=== PATIENT | male | born 1940 | race Caucasian/White ===

== ENCOUNTER 2017-11-16 15:39 | Observation (INO) | payer MEDICARE, OTHER ==
[2017-11-16] MEDS ORDERED: ASPIRIN 81 MG TABLET, CHEWABLE PO ONE (15:56)
[2017-11-16] MEDS ORDERED: NITROGLYCERIN 2% OINTMENT 1 GM PACKET TP ONE (15:56)
--- NOTE | 2017-11-16 15:56 | ER Document Report ---
ED General - General Mode of Arrival: Medic Information source: Patient <PAVEL FAROOQSUE - Last Filed: 11/16/17 22:24> <BRENT ARCE - Last Filed: 11/16/17 23:53> - General Stated Complaint: CHEST TIGHTNESS Time Seen by Provider: 11/16/17 15:46 Notes: Patient is a 77 year old male with a cardiac stent x1 and hypertension and a history of HI presents to the emergency department complaining of chest tightness onset yesterday and shortness of breath onset a few days ago. Patient states he in [place] visiting and has noticed an increase in shortness of breath. Patient states his shortness of breath is exacerbated with movement further stating he has noticed he gets tired easier when walking up an down stairs. He also states that he noticed his arms felt heavier than normal this morning. Patient also complains of nausea, general malaise and a headache. Patient took a baby aspirin prior to EMS arrival. Patient received 2 nitro from EMS prior to arrival to the emergency department. (DANIELLE FAROOQ) - Related Data Allergies/Adverse Reactions: meperidine [From Demerol] Allergy (Verified 11/16/17 16:08) morphine Allergy (Verified 11/16/17 16:07) Past Medical History - General Information source: Patient - Social History Smoking Status: Never Smoker Cigarette use (# per day): No Chew tobacco use (# tins/day): No Frequency of alcohol use: Heavy Drug Abuse: None Family History: Reviewed & Not Pertinent - Past Medical History Cardiac Medical History: Reports: Hx Heart Attack - 2015, x1 cardiac stent, Hx Hypertension Psychiatric Medical History: Reports: Hx Anxiety <DANIELLE FAROOQ - Last Filed: 11/16/17 22:24> Review of Systems - Review of Systems Constitutional: See HPI, Malaise, Weakness EENT: No symptoms reported Cardiovascular: See HPI, Chest pain Respiratory: See HPI, Short of breath Gastrointestinal: See HPI, Nausea Male Genitourinary: No symptoms reported Musculoskeletal: No symptoms reported Skin: No symptoms reported Hematologic/Lymphatic: No symptoms reported Neurological/Psychological: No symptoms reported -: Yes All other systems reviewed and negative <DANIELLE FAROOQ - Last Filed: 11/16/17 22:24> Physical Exam <DANIELLE FAROOQ - Last Filed: 11/16/17 22:24> <BRENT ARCE - Last Filed: 11/16/17 23:53> - Vital signs Vitals: Pulse Ox 94 11/16/17 15:39 - Notes Notes: GENERAL: Alert, interacts well. No acute distress. HEAD: Normocephalic, atraumatic. EYES: Pupils equal, round, and reactive to light. Extraocular movements intact. ENT: Oral mucosa moist, tongue midline. NECK: Full range of motion. Supple. Trachea midline. LUNGS: Clear to auscultation bilaterally, no wheezes, rales, or rhonchi. No respiratory distress. HEART: Regular rate and rhythm. No murmurs, gallops or rubs. ABDOMEN: Soft, non-tender. Non-distended. Bowel sounds present in all 4 quadrants. EXTREMITIES: Moves all 4 extremities spontaneously. Radial and dorsalis pedis pulses 2/4 bilaterally. NEUROLOGICAL: Alert and oriented x3. Normal speech. PSYCH: Normal affect, normal mood. SKIN: Warm, dry, and normal turgor. (DANIELLE FAROOQ) Course - Laboratory Result Diagrams: 11/16/17 15:50 11/16/17 15:50 <DANIELLE FAROOQ - Last Filed: 11/16/17 22:24> - Laboratory Result Diagrams: 11/16/17 15:50 11/16/17 15:50 <BRENT ARCE - Last Filed: 11/16/17 23:53> - Re-evaluation Re-evalutation: 11/16/17 17:47 CBC shows anemia with hemoglobin 12.6, CMP grossly unremarkable, mildly elevated glucose which is nonfasting, cardiac enzymes negative, chest x-ray shows no acute process. EKG is nonischemic. Patient's chest pain has resolved with nitroglycerin, still complains of a headache for which she will be given acetaminophen. Discussed patient with hospitalist Dr. Merchant agrees to place patient on his service in observation status for chest pain rule out. ( BRENT ARCE) - Vital Signs Vital signs: Temp Pulse Resp BP Pulse Ox 98.1 F 61 18 129/70 H 97 11/16/17 19:30 11/16/17 19:30 11/16/17 19:30 11/16/17 19:30 11/16/17 19:30 - Laboratory Laboratory results interpreted by me: 11/16/17 11/16/17 15:50 15:50 RBC 4.19 L Hgb 12.6 L Hct 37.6 L RDW 16.3 H Glucose 123 H Creatine Kinase 210 H - EKG Interpretation by Me Additional EKG results interpreted by me: 11/16/17 17:48 EKG shows sinus rhythm at a rate of 69, left anterior hemiblock, no ST segment elevations or depressions, there are T-wave inversions in 3 and aVF, T-wave flattening in lead II per my interpretation. (BRENT ARCE) Discharge <DANIELLE FAROOQ - Last Filed: 11/16/17 22:24> - Discharge Admitting Provider: Hospitalist - [facility] Admitted: Telemetry <BRENT ARCE - Last Filed: 11/16/17 23:53> - Discharge Clinical Impression: Chest pain, rule out acute myocardial infarction Condition: Fair Disposition: ADMITTED OBSERVATION Scribe Attestation: 11/16/17 23:53 I personally performed the services described in the documentation, reviewed and edited the documentation which was dictated to the scribe in my presence, and it accurately records my words and actions. (BRENT ARCE) Scribe Documentation - Scribe Written by David:: David [place], 11/16/2017 16:20 acting as scribe for :: Nathaniel <DANIELLE FAROOQ - Last Filed: 11/16/17 22:24>
[2017-11-16 16:08] LABS: ABSOLUTE BASOPHILS # (AUTO) 0.1 10^3/uL (0.0-0.2); ABSOLUTE LYMPHOCYTES (AUTO) 1.4 10^3/uL (0.5-4.7); ABSOLUTE MONOCYTES (AUTO) 0.7 10^3/uL (0.1-1.4); ABSOLUTE NEUT (AUTO) 4.7 10^3/uL (1.7-8.2); BASOPHILS % (AUTO) 1.1 % (0-2); EOSINOPHILS % (AUTO) 0.7 % (0-6); HEMATOCRIT 37.6 % (37.9-51.0); HEMOGLOBIN 12.6 g/dL (13.5-17.0); LYMPHOCYTES % (AUTO) 20.8 % (13-45); MEAN CORPUSCULAR HEMOGLOBIN 30.2 pg (27.0-33.4); MEAN CORPUSCULAR HGB CONC 33.6 g/dL (32.0-36.0); MEAN CORPUSCULAR VOLUME 90 fl (80-97); MONOCYTES % (AUTO) 9.5 % (3-13); PLATELET COUNT 223 10^3/uL (150-450); RED BLOOD COUNT 4.19 10^6/uL (4.35-5.55); RED CELL DISTRIBUTION WIDTH 16.3 % (11.5-14.0); SEGMENTED NEUTROPHILS % (AUTO) 67.9 % (42-78); TOTAL CELLS COUNTED % (AUTO) 100 %; WHITE BLOOD COUNT 6.9 10^3/uL (4.0-10.5)
--- NOTE | 2017-11-16 16:16 | RADIOLOGY REPORT (SQ) ---
EXAM DESCRIPTION: CHEST SINGLE VIEW COMPLETED DATE/TIME: 11/16/2017 4:06 pm REASON FOR STUDY: chest pain COMPARISON: None. EXAM PARAMETERS: NUMBER OF VIEWS: One view. TECHNIQUE: Single frontal radiographic view of the chest acquired. RADIATION DOSE: NA LIMITATIONS: None. FINDINGS: LUNGS AND PLEURA: No opacities, masses or pneumothorax. No pleural effusion. MEDIASTINUM AND HILAR STRUCTURES: No masses. Contour normal. HEART AND VASCULAR STRUCTURES: Heart upper limits of normal in size. Normal vasculature. BONES: No acute findings. HARDWARE: Hardware in the cervical spine. OTHER: No other significant finding. IMPRESSION: NO ACUTE RADIOGRAPHIC FINDING IN THE CHEST. TECHNICAL DOCUMENTATION: JOB ID: [id number] [employer]- All Rights Reserved Reading location - IP/workstation name: KE
--- NOTE | 2017-11-16 16:30 | EKG REPORT ---
SEVERITY:- ABNORMAL ECG - SINUS RHYTHM LEFT ANTERIOR FASCICULAR BLOCK TALL R WAVE IN V2, CONSIDER RVH OR PMI ABNORMAL T, CONSIDER ISCHEMIA, INFERIOR LEADS : Confirmed by: Radha Molina 16-Nov-2017 16:29:32
[2017-11-16 16:38] LABS: CREATINE KINASE MB 1.81 ng/mL (<4.55)
[2017-11-16 16:39] LABS: TROPONIN I < 0.012 ng/mL
[2017-11-16 16:41] LABS: ALANINE AMINOTRANSFERASE 46 U/L (21-72); ALBUMIN 3.8 g/dL (3.5-5.0); ALKALINE PHOSPHATASE 86 U/L (38-126); ANION GAP 8 (5-19); ASPARTATE AMINO TRANSFERASE 53 U/L (17-59); BILIRUBIN,DIRECT 0.3 mg/dL (0.0-0.4); BILIRUBIN,TOTAL 0.3 mg/dL (0.2-1.3); BLOOD UREA NITROGEN 18 mg/dL (7-20); CALCIUM 9.2 mg/dL (8.4-10.2); CARBON DIOXIDE 28 mmol/L (22-30); CHLORIDE 107 mmol/L (98-107); CREATINE KINASE 210 U/L (55-170); GLUCOSE 123 mg/dL (75-110); POTASSIUM 4.1 mmol/L (3.6-5.0); SODIUM 142.9 mmol/L (137-145); TOTAL PROTEIN 6.7 g/dL (6.3-8.2)
[2017-11-16] MEDS ORDERED: ACETAMINOPHEN 325 MG TABLET PO ONE (17:46)
[2017-11-16] MEDS ORDERED: ACETAMINOPHEN 325 MG TABLET PO PRN (17:53)
[2017-11-16] MEDS ORDERED: PROMETHAZINE HCL 25 MG TABLET PO PRN (17:53)
--- NOTE | 2017-11-16 18:12 | PDOC H&P ---
History of Present Illness Admission Date/PCP: 11/16/17 17:53 History of Present Illness: AKIL SOUSA is a very pleasant 77 year old who looks younger than his stated age male patient presents with chief complaint of chest pain. Patient reports this he was in his usual baseline state of health up until yesterday when he started to have chest pain described as burning type across his chest nonradiating but he feels heaviness of both right and left shoulders. He endorses also associated shortness of breath. Of note patient has history of coronary artery disease and he is status post stent placement to mid LAD in 2014. His last cardiac cath was a year ago and reportedly it was clean. Patient has also history of hypertension, hyperlipidemia and COPD. No fever, cough, palpitation or diaphoresis. No nausea, vomiting, abdominal pain, diarrhea or urinary complaints. No headache dizziness or blurry vision. Past Medical History Cardiac Medical History: Reports: Myocardial Infarction - 2015, x1 cardiac stent , Hyperlipidema, Hypertension Pulmonary Medical History: Reports: Chronic Obstructive Pulmonary Disease (COPD) GI Medical History: Reports: Gastroesophageal Reflux Disease Psychiatric Medical History: Reports: Depression Past Surgical History Past Surgical History: Reports: Cardiac Catheterization - LAD stent, Orthopedic Surgery - L knee; R knee; R shoulder; C6-C7 fusion Social History Smoking Status: Former Smoker Frequency of Alcohol Use: None Hx Recreational Drug Use: No Drugs: None - Advance Directive Resuscitation Status: Full Code Family History Family History: Reviewed & Not Pertinent, CAD Parental Family History Reviewed: Yes Children Family History Reviewed: Yes Sibling(s) Family History Reviewed.: Yes Medication/Allergy Home Medications: Aspirin [Aspirin 81 mg Chewable Tablet] 81 mg PO DAILY 11/16/17 Cholecalciferol (Vitamin D3) [Vitamin D3 2000 unit Tablet] 2,000 unit PO DAILY 11/16/17 Escitalopram Oxalate [Lexapro] 20 mg PO DAILY 11/16/17 Fexofenadine HCl [Alicia Allergy] 180 mg PO DAILY 11/16/17 Fluticasone Propionate [Flonase Nasal [place] 50 Mcg/[place] 16 gm] 2 sprays NASL DAILY 11/16/17 Fluticasone/Salmeterol [Advair 100-50 Diskus 28 Dose] 1 inh IH Q12H 11/16/17 Lansoprazole [Prevacid] 30 mg PO DAILY 11/16/17 Losartan Potassium 50 mg PO DAILY 11/16/17 [place]-3/Dha/Epa/Fish Oil [[place] 3 500 Softgel] 1 each PO QHS 11/16/17 Rosuvastatin Calcium [Crestor 20 mg Tablet] 20 mg PO QHS 11/16/17 Allergies/Adverse Reactions: meperidine [From Demerol] Allergy (Verified 11/16/17 16:08) morphine Allergy (Verified 11/16/17 16:07) Review of Systems Constitutional: ABSENT: chills, fever(s), headache(s), weight gain, weight loss Eyes: ABSENT: visual disturbances Ears: ABSENT: hearing changes Cardiovascular: PRESENT: chest pain Respiratory: ABSENT: cough, hemoptysis Gastrointestinal: ABSENT: abdominal pain, constipation, diarrhea, hematemesis, hematochezia, nausea, vomiting Neurological: ABSENT: abnormal gait, abnormal speech, confusion, dizziness, focal weakness, syncope Psychiatric: ABSENT: anxiety, depression, homidical ideation, suicidal ideation Physical Exam Vital Signs: Temp Pulse Resp BP Pulse Ox 21 H 126/70 H 96 11/16/17 17:31 11/16/17 17:31 11/16/17 17:31 General appearance: PRESENT: no acute distress, well-developed, well-nourished Head exam: PRESENT: atraumatic, normocephalic Eye exam: PRESENT: conjunctiva pink, EOMI, PERRLA. ABSENT: scleral icterus Neck exam: ABSENT: carotid bruit, JVD, lymphadenopathy, thyromegaly Respiratory exam: PRESENT: clear to auscultation oscar. ABSENT: rales, rhonchi, wheezes Cardiovascular exam: PRESENT: RRR. ABSENT: diastolic murmur, rubs, systolic murmur GI/Abdominal exam: PRESENT: normal bowel sounds, soft. ABSENT: distended, guarding, mass, organolmegaly, rebound, tenderness Extremities exam: PRESENT: full ROM. ABSENT: calf tenderness, clubbing, pedal edema Neurological exam: PRESENT: alert, awake, oriented to person, oriented to place , oriented to time, oriented to situation, CN II-XII grossly intact. ABSENT: motor sensory deficit Psychiatric exam: PRESENT: appropriate affect, normal mood. ABSENT: homicidal ideation, suicidal ideation Results Impressions: Chest X-Ray 11/16/17 15:56 IMPRESSION: NO ACUTE RADIOGRAPHIC FINDING IN THE CHEST. Assessment & Plan - Diagnosis (1) Chest pain Qualifiers: Chest pain type: other chest pain Qualified Code(s): R07.89 - Other chest pain; R07.8 - Other chest pain Is this a current diagnosis for this admission?: Yes Plan: Since patient has multiple risk factors and history of coronary artery disease status post stent placement he will be admitted to the telemetry floor for observation. We will trend his cardiac enzymes repeat his EKG and he will be subjected to treadmill cardiac stress test. (2) Coronary artery disease Qualifiers: Coronary Disease-Associated Artery/Lesion type: [place] artery Is this a current diagnosis for this admission?: Yes Plan: Continue his home medication (3) COPD (chronic obstructive pulmonary disease) Qualifiers: Emphysema type: unspecified Is this a current diagnosis for this admission?: Yes Plan: As needed breathing treatment. (4) Hypertension Qualifiers: Hypertension type: essential hypertension Qualified Code(s): I10 - Essential (primary) hypertension Is this a current diagnosis for this admission?: Yes Plan: Continue his home medication. (5) Hyperlipidemia Qualifiers: Hyperlipidemia type: unspecified Qualified Code(s): E78.5 - Hyperlipidemia , unspecified Is this a current diagnosis for this admission?: Yes Plan: Continue his home medication.
[2017-11-16] MEDS ORDERED: LANSOPRAZOLE 30 MG TAB.RAP.DR PO ONE (19:00)
[2017-11-16] MEDS ORDERED: FLUTICASONE/SALMETEROL DISKUS 100-50 MCG/DOSE IH ONE ×2 (19:00→20:46)
[2017-11-16] MEDS ORDERED: ASPIRIN 81 MG TABLET, CHEWABLE ONE ×2 (19:50→20:00)
[2017-11-16] MEDS ORDERED: NITROGLYCERIN 2% OINTMENT 1 GM PACKET ONE (19:50)
[2017-11-16] MEDS ORDERED: OMEGA-3 ACID ETHYL ESTERS 1 GM CAPSULE PO SCH (22:00)
[2017-11-16] MEDS ORDERED: ATORVASTATIN CALCIUM 40 MG TABLET PO SCH (22:00)
[2017-11-17 05:09] LABS: HEMATOCRIT 34.3 % (37.9-51.0); HEMOGLOBIN 11.6 g/dL (13.5-17.0); MEAN CORPUSCULAR HEMOGLOBIN 30.3 pg (27.0-33.4); MEAN CORPUSCULAR HGB CONC 33.9 g/dL (32.0-36.0); MEAN CORPUSCULAR VOLUME 89 fl (80-97); PLATELET COUNT 199 10^3/uL (150-450); RED BLOOD COUNT 3.85 10^6/uL (4.35-5.55); RED CELL DISTRIBUTION WIDTH 16.3 % (11.5-14.0); WHITE BLOOD COUNT 5.9 10^3/uL (4.0-10.5)
[2017-11-17 05:30] LABS: ANION GAP 9 (5-19); BLOOD UREA NITROGEN 16 mg/dL (7-20); CALCIUM 9.1 mg/dL (8.4-10.2); CARBON DIOXIDE 27 mmol/L (22-30); CHLORIDE 108 mmol/L (98-107); CHOLESTEROL 127.64 mg/dL (0-200); GLUCOSE 99 mg/dL (75-110); POTASSIUM 4.1 mmol/L (3.6-5.0); SODIUM 143.8 mmol/L (137-145); TRIGLYCERIDES 75 mg/dL (<150)
[2017-11-17 05:40] LABS: DIRECT LDL 42 mg/dL (<100)
[2017-11-17] MEDS ORDERED: LANSOPRAZOLE 30 MG TAB.RAP.DR PO SCH (06:00)
[2017-11-17] MEDS ORDERED: FLUTICASONE NASAL SPRAY 50 MCG/SPRY 120 SPRAY/16 GM NASL SCH (10:00)
[2017-11-17] MEDS ORDERED: LORATADINE 10 MG TABLET PO SCH (10:00)
[2017-11-17] MEDS ORDERED: LOSARTAN POTASSIUM 50 MG TABLET PO SCH (10:00)
[2017-11-17] MEDS ORDERED: ESCITALOPRAM OXALATE 10 MG TABLET PO SCH (10:00)
[2017-11-17] MEDS ORDERED: ASPIRIN 81 MG TABLET, CHEWABLE PO SCH (10:00)
[2017-11-17] MEDS ORDERED: FLUTICASONE/SALMETEROL DISKUS 100-50 MCG/DOSE IH SCH (10:00)
[2017-11-17] MEDS ORDERED: ENOXAPARIN SODIUM INJ 40 MG/0.4 ML DISP.SYRIN SUBCUT SCH (10:00)
[2017-11-17] MEDS ORDERED: CHOLECALCIFEROL (D3) 1,000 UNIT TABLET PO SCH (10:00)
--- NOTE | 2017-11-17 11:32 | PDOC DISCHARGE SUMMARY ---
General - Admit/Disc Date/PCP Admission Date/Primary Care Provider: 11/16/17 17:53 Discharge Date: 11/17/17 - Discharge Diagnosis (1) Chest pain Is this a current diagnosis for this admission?: Yes (2) Coronary artery disease Is this a current diagnosis for this admission?: Yes (3) COPD (chronic obstructive pulmonary disease) Is this a current diagnosis for this admission?: Yes (4) Hypertension Is this a current diagnosis for this admission?: Yes (5) Hyperlipidemia Is this a current diagnosis for this admission?: Yes - Additional Information Resuscitation Status: Full Code Discharge Diet: As Tolerated Discharge Activity: No Lifting/Push/Pulling Home Medications: Cholecalciferol (Vitamin D3) [Vitamin D3 2000 unit Tablet] 2,000 unit PO DAILY 11/16/17 Escitalopram Oxalate [Lexapro] 20 mg PO DAILY 11/16/17 Fexofenadine HCl [Alicia Allergy] 180 mg PO DAILY 11/16/17 Fluticasone Propionate [Flonase Nasal [place] 50 Mcg/[place] 16 gm] 2 sprays NASL DAILY 11/16/17 Fluticasone/Salmeterol [Advair 100-50 Diskus 28 Dose] 1 inh IH Q12 11/16/17 Lansoprazole [Prevacid] 30 mg PO Q12 11/16/17 Losartan Potassium 50 mg PO DAILY 11/16/17 Rosuvastatin Calcium [Crestor 20 mg Tablet] 20 mg PO QHS 11/16/17 Aspirin [Aspirin EC] 81 mg PO QHS 11/17/17 [place]-3/Dha/Epa/Fish Oil [Fish Oil 1,000 mg Softgel] 1 each PO QHS 11/17/17 History of Present Illness History of Present Illness: AKIL SOUSA is a very pleasant 77 year old who looks younger than his stated age male patient presents with chief complaint of chest pain. Patient reports this he was in his usual baseline state of health up until yesterday when he started to have chest pain described as burning type across his chest nonradiating but he feels heaviness of both right and left shoulders. He endorses also associated shortness of breath. Of note patient has history of coronary artery disease and he is status post stent placement to mid LAD in 2015. His last cardiac cath was a year ago and reportedly it was clean. Patient has also history of hypertension, hyperlipidemia and COPD. No fever, cough, palpitation or diaphoresis. No nausea, vomiting, abdominal pain, diarrhea or urinary complaints. No headache dizziness or blurry vision. Hospital Course Hospital Course: This is 77 years old male patient admitted yesterday with chief complaint of chest pain which is nonradiating. He has been treated with nitroglycerin and aspirin. This morning patient supposed to have treadmill constant cardiac stress test but she has COPD the template maker counseled the test and scheduled him for Lexiscan stress test but the patient wants to stay 1 more night so I talked to his primary template maker who scheduled him stress test in the coming 1 week. I seen the patient this morning resting in bed comfortably chatting with his . His notes in pain or distress his vital signs are stable so patient scored to go. Physical Exam Vital Signs: Temp Pulse Resp BP Pulse Ox 98.2 F 61 18 133/71 H 98 11/17/17 07:37 11/17/17 07:37 11/17/17 07:37 11/17/17 07:37 11/17/17 07:37 Intake & Output 11/16/17 11/17/17 11/18/17 06:59 06:59 06:59 Intake Total 305 Balance 305 Weight 103.3 kg General appearance: PRESENT: no acute distress, well-developed, well-nourished Head exam: PRESENT: atraumatic, normocephalic Ear exam: PRESENT: normal external ear exam Neck exam: ABSENT: carotid bruit, JVD, lymphadenopathy, thyromegaly Respiratory exam: PRESENT: clear to auscultation oscar. ABSENT: rales, rhonchi, wheezes Cardiovascular exam: PRESENT: RRR. ABSENT: diastolic murmur, rubs, systolic murmur GI/Abdominal exam: PRESENT: normal bowel sounds, soft. ABSENT: distended, guarding, mass, organolmegaly, rebound, tenderness Neurological exam: PRESENT: alert, awake, oriented to person, oriented to place , oriented to time, oriented to situation, CN II-XII grossly intact. ABSENT: motor sensory deficit Psychiatric exam: PRESENT: appropriate affect, normal mood. ABSENT: homicidal ideation, suicidal ideation Results Laboratory Results: 11/17/17 04:34 11/17/17 04:34 05/29/18 05/29/18 05/29/18 04:34 04:34 04:34 WBC 5.9 RBC 3.85 L Hgb 11.6 L Hct 34.3 L MCV 89 MCH 30.3 MCHC 33.9 RDW 16.3 H Plt Count 199 Sodium 143.8 Potassium 4.1 Chloride 108 H Carbon Dioxide 27 Anion Gap 9 BUN 16 Creatinine 0.72 Est GFR ( Amer) > 60 Est GFR (Non-Af Amer) > 60 Glucose 99 Calcium 9.1 Triglycerides 75 Cholesterol 127.64 LDL Cholesterol Direct 42 VLDL Cholesterol 15.0 HDL Cholesterol 83 TSH 2.18 11/16/17 11/17/17 19:55 04:34 Troponin I < 0.012 0.014 Impressions: Chest X-Ray 11/16/17 15:56 IMPRESSION: NO ACUTE RADIOGRAPHIC FINDING IN THE CHEST. Qualifiers - * PATIENT BEING DISCHARGED WITH ANY OF THE FOLLOWING DIAGNOSIS: No
[2017-11-17 11:57] VITALS: BP 129/70
== END 2017-11-17 13:04 | disposition home or self-care (01) ==
LOC: ER 15:39 → EH 17:53 → 4N 19:13
PROVIDERS: ADMIT Internal Medicine; ATTEND Internal Medicine
DX: R07.89 Other chest pain (principal); I25.10 Atherosclerotic heart disease of native coronary artery without angina pectoris; J44.9 Chronic obstructive pulmonary disease, unspecified; I10 Essential (primary) hypertension; E78.5 Hyperlipidemia, unspecified; R11.0 Nausea; R53.81 Other malaise; R51 Headache; I25.2 Old myocardial infarction; Z95.5 Presence of coronary angioplasty implant and graft; Z79.899 Other long term (current) drug therapy; Z79.82 Long term (current) use of aspirin; Z87.891 Personal history of nicotine dependence
CPT/HCPCS: 93005; 99285; 36415 ×2; 82553; 82550; 84443; 85025; 85027; 80048; 80053; 84484 ×2; 80061; 71045; 93010; 94660; G0378 ×3; A9270 ×7; J1650; J3490 ×2